=== PATIENT | male | born 1980 | race Caucasian/White ===

== ENCOUNTER 2020-01-11 09:30 | Outpatient (RCR) | payer OTHER, SELFPAY ==
--- NOTE | 2020-01-06 09:19 | P.PNPS_ITS ---
TMS Daily Progress Note Daily TMS Progress Note Week #: 8 Treatment #(05-05): 33 PHQ-9 Pre-Treatment (05-02): 17 PHQ-9 Most Recent (05-02): 16 Reviewed: TMS Tech Note Reviewed Verification: I have reviewed the TMS Meteorological Technician Note and agree with the contents. The patient remains a candidate to continue TMS treatment per protocol.
--- NOTE | 2020-01-06 21:33 | HO.TMSDAILY2 ---
TMS Daily Progress Note Daily TMS Progress Note Week #: 7 Treatment #(05-05): 32 PHQ-9 Pre-Treatment (05-02): 17 PHQ-9 Most Recent (05-02): 18 Reviewed: TMS Tech Note Reviewed Verification: I have reviewed the TMS Graphic Illustrator Note and agree with the contents. The patient remains a candidate to continue TMS treatment per protocol.
--- NOTE | 2020-01-06 21:37 | P.PNPS_ITS ---
TMS Daily Progress Note Daily TMS Progress Note Week #: 7 Treatment #(05-05): 33 PHQ-9 Pre-Treatment (05-02): 18 PHQ-9 Most Recent (05-02): 17 Reviewed: TMS Tech Note Reviewed Verification: I have reviewed the TMS Technical Communication Teacher Note and agree with the contents. The patient remains a candidate to continue TMS treatment per protocol.
--- NOTE | 2020-01-09 22:40 | P.PNPS_ITS ---
TMS Daily Progress Note Daily TMS Progress Note Week #: 8 Treatment #(05-05): 34 PHQ-9 Pre-Treatment (05-02): 17 PHQ-9 Most Recent (05-02): 16 VICK-7 Pre-Treatment (0-): 16 VICK-7 Most Recent (0-21): 11 Q-LES-Q-SF Most Recent: 41 Reviewed: TMS Tech Note Reviewed Verification: I have reviewed the TMS Slab Conditioner Supervisor Note and agree with the contents. The patient remains a candidate to continue TMS treatment per protocol.
--- NOTE | 2020-01-10 15:22 | P.PNPS_ITS ---
TMS Daily Progress Note Daily TMS Progress Note Week #: 8 Treatment #(05-05): 35 PHQ-9 Pre-Treatment (05-02): 17 PHQ-9 Most Recent (05-02): 16 Reviewed: TMS Tech Note Reviewed Verification: I have reviewed the TMS Building Equipment Inspector Note and agree with the contents. The patient remains a candidate to continue TMS treatment per protocol.
--- NOTE | 2020-01-11 17:03 | HO.TMSDCTER ---
TMS Discharge-Termination Chart Review Treatments Completed: 36/ Week 8 Initial MT%: 100% Final MT%: 120% Was Remapping Required: No Clinical Evaluation/Review PHQ-9 Pre-Treatment (05-02): 17 PHQ-9 Post-Treatment (05-02): 16 VICK-7 Pre-Treatment (0-21): 16 VICK-7 Most Recent (0-21): 11 CGI-I Initial: 4 = No Change CGI-I Post Treatment: 4 = No Change Q-LES-Q-SF Pre-Treatment: 43% Q-LES-Q-SF Post-Treatment: 41% Adverse Effects Local Pain/Discomfort: No Headache: No Facial Pain: No Seizure: No Impression Impression: No response to TMS Recommendations TMS: Discontinue Medication Changes: per Dr Pantoja Follow-up w/ Prescriber: Dr Pantoja considering ECT
== END 2020-01-11 16:13 | disposition home or self-care (01) ==
LOC: HO.PTMS 09:30
PROVIDERS: Visit Provider Psychiatry & Neurology Psychiatry
DX: F33.2 Major depressive disorder, recurrent severe without psychotic features (principal)
CPT/HCPCS: 90868

== ENCOUNTER 2020-01-13 14:12 | Outpatient (REF) | payer MEDICAID, SELFPAY ==
--- NOTE | 2020-01-13 14:25 | ECG_ITS ---
Test Reason : CLEARENCE FOR ECT Blood Pressure : / mmHG Vent. Rate : 103 BPM Atrial Rate : 103 BPM P-R Int : 146 ms QRS Dur : 092 ms QT Int : 312 ms P-R-T Axes : 050 038 065 degrees QTc Int : 408 ms Sinus tachycardia Otherwise normal ECG No previous ECGs available Referred By: Kashif Pantoja Electronically Signed By:VALENTINA BALDERRAMA MD
[2020-01-13 14:55] LABS: MANUAL DIFF FLAG NO
[2020-01-13 14:59] LABS: Basophils Percent Auto 0.2 % (0-2); Eosinophils Absolute Auto 0.1 X10*3/uL (0.0-0.4); Eosinophils Percent Auto 0.9 % (0-4); Hematocrit 47.3 % (42-52); Hemoglobin 16.2 g/dl (14.0-18.0); Imm Gran Abs Auto 0.03 X10*3/uL (0.00-0.03); Imm Gran Pct Auto 0.3 % (0.0-0.4); Lymphocytes Absolute Auto 2.1 X10*3/uL (1.2-4.9); Lymphocytes Percent Auto 24.2 % (20-40); Mean Corpuscular HGB Conc 34.2 g/dl (31.0-36.0); Mean Corpuscular Hemoglobin 29.7 pg (27.0-33.0); Mean Corpuscular Volume 86.6 fL (80-98); Mean Platelet Volume 9.5 fL (9.4-12.4); Monocytes Absolute Auto 0.7 X10*3/uL (0.1-1.2); Monocytes Percent Auto 8.3 % (2-11); Neutrophils Absolute Auto 5.7 X10*3/uL (2.0-8.3); Neutrophils Percent Auto 66.1 % (45-73); Platelet Count 251 X10*3/uL (160-400); Red Blood Count 5.46 X10*6/uL (4.60-5.80); White Blood Count 8.7 X10*3/uL (4.8-10.8)
[2020-01-13 15:29] LABS: Alanine Aminotransferase 84 U/L (0-40); Alkaline Phosphatase 83 U/L (39-117); Anion Gap 12 (12-20); Aspartate Amino Transferase 38 U/L (5-37); Bilirubin Total 0.2 mg/dL (0.0-1.0); Blood Urea Nitrogen 14 mg/dL (9-16); Calcium 9.7 mg/dL (8.4-10.2); Carbon Dioxide 30 mmol/L (22-29); Chloride 103 mmol/L (96-108); Estimated Glomerular Filt Rate > 60; Glucose Random 74 mg/dL (60-115); Potassium 4.3 mmol/l (3.3-5.1); Sodium 141 mmol/L (135-145); Total Protein 7.5 g/dL (6.5-8.0)
== END 2020-01-13 14:13 | disposition home or self-care (01) ==
LOC: HO.LAB 14:12
PROVIDERS: PCP Nurse Practitioner Family; Visit Provider Psychiatry & Neurology Psychiatry
DX: F33.2 Major depressive disorder, recurrent severe without psychotic features (principal)
CPT/HCPCS: 36415; 80053; 85025; 93005

== ENCOUNTER 2020-02-09 09:26 | Day surgery (SDC) | payer OTHER, SELFPAY ==
[2020-02-08] VITALS (7 sets, daily range): BP systolic 133–167; BP diastolic 74–112; PULSE 78–107; RESP 18–24; TEMP 36.4–36.7; O2SAT 95–100; BMI 25.1
--- NOTE | 2020-02-08 06:29 | HO.ECTPROC ---
ECT Procedure Note Diagnosis/Treatment Diagnosis: Major Depressive Disorder Current Treatment Number: 1 Treatment: Series Interval Clinical Notes: Remains depressed. First ECT ECT Settings Device: THYMATRON DGx Electrode Placement: Right Unilateral Program/Pulse Width: 0.25 Energy Percent: 50 Seizure Duration By EEG (in seconds): 79 By Motor Observation (in seconds): 74 Medications Administration General Anesthetic: Etomidate (14) Muscle Relaxant: Succinylcholine (100) Ancillary Medications Analgesics: Torodol - Pre ECT (15) Anti-emetics: Zofran - Pre ECT (4) Miscillaneous Medications: Propofol (30) Airway Management Airway Management: Bag Mask Ventilation Treatment Recommendations Electrode Placement: Right Unilateral Program/Pulse Width: 0.25 Energy Percent: 40 Notes: decrease to 40 % Pt Tolerated Procedure w/o Issue: Yes
--- NOTE | 2020-02-08 06:29 | MHC.SHP ---
Pre-Procedural Eval Section A The patient is an INPATIENT: No Changes since office visit: No Cold of Flu in the past 2 weeks, No New Medical Problems, No Changes in Medication and No Patient answered all questions The History & Physical has been completed within 30 days and I have reviewed it.: Yes Section B Chief Complaint: Severe Depression Allergies: Allergies Allergy/AdvReac Type Severity Reaction Status Date / Time dried apricots Allergy Unknown Difficulty Uncoded 01/05/20 10:19 Swallowing WELLBUTRIN AdvReac Unknown Seizure Uncoded 01/05/20 10:19 Plan Diagnosis/Plan: Unchanged Patient has been examined and remains a candidate for the planned procedure
--- NOTE | 2020-02-08 06:35 | P.CNPS_ITS ---
History of Present Illness Chief Complaint: Severe Depression Reason for Consult: ECT consultation Requesting physician: Kashif Pantoja Discussed with referring provider: Yes Sources of Information: patient interviewed and chart reviewed Additional Sources of Information: Records from [facility] and Dr Pantoja HPI Narrative: Pt referred by TW who is his OP for ECT. Long Hx TRD. X med failures. Recently failed TMS x 36. Continues to be anhedonic w a high PHQ score over 20. Denies psychosis or bipolar. Hx depressionn related anorexia. Hx cutting but no SI recenly. Hx opioid use but now on Vivtrol from [facility] clinic. Recent move to [place]. Ongoing family stress and $$ stress. See TMS consult of October 2019 for failed treatments Past Psychiatric History: Sees therapist and Dr Pantoja for med Mx. Hx X therapeutic failures. Medical Evaluation Reviewed: Yes No acute medical issues. H and P reviewed Personal & Social History: Mother is supportive. Lives with and special needs bio kids Review of Systems Review of Systems Yes all other systems are reviewed and are negative [facility] Medical History Anxiety Bipolar affective disorder Depression GERD (gastroesophageal reflux disease) Peptic ulcer Seizures Surgical History H/O vasectomy Diagnostics Labs Labs: See H and P from PCP. Scanned ? EKG EKG: reviewed EKG Comment: See H and P from PCP Mental Status Exam Mental Status Exam Patient Appearance: Appropriate and Unkempt Patient Orientation: Person, Place, Time and Situation Level of Consciousness: Awake Patient Behavior: Appropriate Mood Description: Depressed Affect Description: Depressed Patient Cognition Impaired: No Ability to Follow Directions: Excellent Memory Description: Intact Hallucinations: None Delusions: Not Present Thought Process: Intact Depressive Symptoms: Insomnia, Increased Irritability, Loss of Int. in Activity and Unhappiness Judgement: Good Medications Allergies Allergies Allergy/AdvReac Type Severity Reaction Status Date / Time dried apricots Allergy Unknown Difficulty Uncoded 01/05/20 10:19 Swallowing WELLBUTRIN AdvReac Unknown Seizure Uncoded 01/05/20 10:19 Assessment & Plan Assessment & Plan (1) Major depressive disorder, recurrent severe without psychotic features: Status: Acute Code(s): F33.2 - Major depressive disorder, recurrent severe without psychotic features Recommendations: Start ECT today. Extensive Education done with too 2 weeks ago Greater than 50% of the session was spent on counseling and/or coordination of care
--- NOTE | 2020-02-08 07:36 | HO.ANESPROP2 ---
HPI - Anesthesia Eval Consult details Narrative: 39 M with MDD pf ECT PMFSH Past Medical History Medical History Anxiety Bipolar affective disorder Depression GERD (gastroesophageal reflux disease) Peptic ulcer Seizures Surgical History Surgical History H/O vasectomy Social History Social History Household Members: Spouse and Children Housing: Apartment Alcohol intake: never Smoking Status: Former smoker Tobacco Type: Pipe Smoked in Last 30 Days: Yes Use of substances other than those prescribed or required for medical reasons: Yes Substance Use Type: Former Substance User, Heroin, Marijuana, Opiates, Other, Painkillers and Prescription Drugs Substance Use Type Other:: LSD in , mushrooms in , ecstacy in , Substance Use Frequency: Daily Last Used Substance Other:: marijuana used 02/07/2020 Currently Displaying Signs/Symptoms of Drug Intoxication Withdrawal: No Have you been hit, kicked, punched, or otherwise hurt by someone within the past year? If so, by whom?: No Do you feel safe in your current relationship?: No Is there a partner from a previous relationship who is making you feel unsafe now?: No Are you made to feel afraid or neglected: No Do you have thoughts of harming others: None Meds Allergies Allergy/AdvReac Type Severity Reaction Status Date / Time dried apricots Allergy Unknown Difficulty Uncoded 01/05/20 10:19 Swallowing WELLBUTRIN AdvReac Unknown Seizure Uncoded 01/05/20 10:19 Home Medications Medication Instructions Recorded Confirmed Type aripiprazole 10 mg PO DAILY 02/08/20 02/08/20 History desipramine 50 mg PO BEDTIME 02/08/20 02/08/20 History escitalopram oxalate 20 mg PO DAILY 02/08/20 02/08/20 History folic acid 1 mg PO DAILY 02/08/20 02/08/20 History omeprazole 20 mg PO DAILY 02/08/20 02/08/20 History thiamine HCl (vitamin B1) [Vitamin 100 mg PO DAILY 02/08/20 02/08/20 History B-1] Exam Exam Date and Time: February 08, 2020 0736 Height,Weight and Vital Signs: Height 5 ft 9 in Weight 77.111 kg Last Vital Signs Temp 98.1 F 02/08/20 06:30 Pulse 107 H 02/08/20 06:30 Resp 18 02/08/20 06:30 BP 147/93 H 02/08/20 06:30 Pulse Ox 97 02/08/20 06:30 Airway Mallampati Class: II TM Dist: >3cm Neck ROM: Full Loose/Missing/Broken Teeth: No Heart: rrr Lungs: nl Other: ao Assessment and Plan Assessment Anesthesia Assessment: Anesthesia Plan Discussed and Chart Reviewed Final Anesthetic Review NPO: Yes ASA Class: II Final Preanesthetic Review: No Changes in Pt Med Stat, Meds/Allgs Chart Reviewed, Consent Obtained/Reviewed and Anes Risks/Benef Reviewed Patient Risk: Low Procedure Risk: Low Anesthetic Plan Anesthetic Plan: GA Disposition: Standard PACU
== END 2020-02-09 23:59 | disposition home or self-care (01) ==
PROVIDERS: PCP Nurse Practitioner Family; Visit Provider Psychiatry & Neurology Psychiatry
PROC: (CPT 90870; principal; 2020-02-08 09:30)
DX: F32.2 Major depressive disorder, single episode, severe without psychotic features (principal); Z87.898 Personal history of other specified conditions; Z87.891 Personal history of nicotine dependence; Z88.8 Allergy status to other drugs, medicaments and biological substances; Z79.899 Other long term (current) drug therapy
CPT/HCPCS: 90870; 99284

== ENCOUNTER 2020-02-10 06:07 | Day surgery (SDC) | payer OTHER, SELFPAY ==
[2020-02-10] VITALS (7 sets, daily range): BP systolic 136–160; BP diastolic 85–111; PULSE 75–102; RESP 18–20; TEMP 36.1–37.2; O2SAT 97–99; BMI 25.1
--- NOTE | 2020-02-10 07:06 | HO.ECTPROC ---
ECT Procedure Note Diagnosis/Treatment Diagnosis: Major Depressive Disorder Previous ECT Date: 02/08/20 Current Treatment Number: 2 Treatment: Series (2) Interval Clinical Notes: tolerated ECT well ECT Settings Device: THYMATRON DGx Electrode Placement: Right Unilateral Program/Pulse Width: 0.25 Energy Percent: 40 Seizure Duration By EEG (in seconds): 81 By Motor Observation (in seconds): 60 Medications Administration General Anesthetic: Etomidate (14) Muscle Relaxant: Succinylcholine (100) Ancillary Medications Analgesics: Torodol - Pre ECT (15) Anti-emetics: Zofran - Pre ECT (4) Miscillaneous Medications: Propofol (30) Airway Management Airway Management: Bag Mask Ventilation Treatment Recommendations Electrode Placement: Right Unilateral Program/Pulse Width: 0.25 Energy Percent: 30 Notes: Decrease to 30%. Wait for succ to take effect to avoid motor Sz Pt Tolerated Procedure w/o Issue: Yes
--- NOTE | 2020-02-10 08:10 | P.CONAN_ITS ---
[facility] Past Medical History Medical History Anxiety Bipolar affective disorder Depression GERD (gastroesophageal reflux disease) Peptic ulcer Seizures Surgical History Surgical History H/O vasectomy Social History Social History Household Members: Spouse and Children Housing: Apartment Alcohol intake: never Smoking Status: Former smoker Tobacco Type: Pipe Substance Use Type: Former Substance User, Heroin, Marijuana, Opiates, Other, Painkillers and Prescription Drugs Advance Directives: No Meds Allergies Allergy/AdvReac Type Severity Reaction Status Date / Time dried apricots Allergy Unknown Difficulty Uncoded 01/05/20 10:19 Swallowing WELLBUTRIN AdvReac Unknown Seizure Uncoded 01/05/20 10:19 Home Medications Medication Instructions Recorded Confirmed Type aripiprazole 10 mg PO DAILY 02/08/20 02/08/20 History desipramine 50 mg PO BEDTIME 02/08/20 02/08/20 History escitalopram oxalate 20 mg PO DAILY 02/08/20 02/08/20 History folic acid 1 mg PO DAILY 02/08/20 02/08/20 History omeprazole 20 mg PO DAILY 02/08/20 02/08/20 History thiamine HCl (vitamin B1) [Vitamin 100 mg PO DAILY 02/08/20 02/08/20 History B-1] Exam Exam Date and Time: February 10, 2020 0810 Height,Weight and Vital Signs: Height 5 ft 9 in Weight 77.111 kg Last Vital Signs Temp 97.0 F 02/10/20 06:30 Pulse 102 H 02/10/20 06:30 Resp 18 02/10/20 06:30 BP 142/101 H 02/10/20 06:30 Pulse Ox 97 02/10/20 06:30 Airway Mallampati Class: II TM Dist: >3cm Neck ROM: Full
--- NOTE | 2020-02-10 10:12 | PC.NURSE ---
Late entry. Pt admitted to PACU for ECT. IV inserted, LR infusing, anesthesia to enter order.
== END 2020-02-10 10:00 | disposition home or self-care (01) ==
PROVIDERS: PCP Nurse Practitioner Family; Visit Provider Psychiatry & Neurology Psychiatry
PROC: (CPT 90870; principal; 2020-02-10 08:30)
DX: F31.30 Bipolar disorder, current episode depressed, mild or moderate severity, unspecified (principal)
CPT/HCPCS: 90870; J0330; J1885; J2405

== ENCOUNTER 2020-02-13 06:09 | Day surgery (SDC) | payer OTHER, SELFPAY ==
[2020-02-13] VITALS (7 sets, daily range): BP systolic 145–172; BP diastolic 99–111; PULSE 78–100; RESP 18–20; TEMP 36.3–36.8; O2SAT 93–99
--- NOTE | 2020-02-13 07:04 | HO.ECTPROC ---
ECT Procedure Note Diagnosis/Treatment Diagnosis: Major Depressive Disorder Previous ECT Date: 02/10/20 Current Treatment Number: 3 Treatment: Series Interval Clinical Notes: Mood better ECT Settings Device: THYMATRON DGx Electrode Placement: Right Unilateral Program/Pulse Width: 0.25 Energy Percent: 30 Medications Administration General Anesthetic: Etomidate (14) Muscle Relaxant: Succinylcholine (100) Ancillary Medications Analgesics: Torodol - Pre ECT (15) Anti-emetics: Zofran - Pre ECT (4) Miscillaneous Medications: Propofol (50) Airway Management Airway Management: Bag Mask Ventilation Treatment Recommendations Electrode Placement: Right Unilateral Program/Pulse Width: 0.25 Energy Percent: 30 Notes: Increase Succ to 140 mg bc of motor Sz Pt Tolerated Procedure w/o Issue: Yes
--- NOTE | 2020-02-13 08:02 | HO.ANESPROP2 ---
[facility] Past Medical History Medical History Anxiety Bipolar affective disorder Depression GERD (gastroesophageal reflux disease) Peptic ulcer Seizures Surgical History Surgical History H/O vasectomy Social History Social History Household Members: Spouse and Children Housing: Apartment Alcohol intake: never Smoking Status: Former smoker Tobacco Type: Pipe Substance Use Type: Former Substance User, Heroin, Marijuana, Opiates, Other, Painkillers and Prescription Drugs Advance Directives: No Meds Allergies Allergy/AdvReac Type Severity Reaction Status Date / Time dried apricots Allergy Unknown Difficulty Uncoded 01/05/20 10:19 Swallowing WELLBUTRIN AdvReac Unknown Seizure Uncoded 01/05/20 10:19 Home Medications Medication Instructions Recorded Confirmed Type aripiprazole 10 mg PO DAILY 02/08/20 02/08/20 History desipramine 50 mg PO BEDTIME 02/08/20 02/08/20 History escitalopram oxalate 20 mg PO DAILY 02/08/20 02/08/20 History folic acid 1 mg PO DAILY 02/08/20 02/08/20 History omeprazole 20 mg PO DAILY 02/08/20 02/08/20 History thiamine HCl (vitamin B1) [Vitamin 100 mg PO DAILY 02/08/20 02/08/20 History B-1] Exam Exam Date and Time: February 13, 2020 0802 Height,Weight and Vital Signs: Last Vital Signs Temp 98.2 F 02/13/20 06:37 Pulse 93 02/13/20 06:37 Resp 18 02/13/20 06:37 BP 145/108 H 02/13/20 06:37 Pulse Ox 96 02/13/20 06:37 Airway Mallampati Class: II TM Dist: >3cm Neck ROM: Full Assessment and Plan Assessment Anesthesia Assessment: Anesthesia Plan Discussed and Chart Reviewed Final Anesthetic Review NPO: Yes Final Preanesthetic Review: No Changes in Pt Med Stat, Meds/Allgs Chart Reviewed, Consent Obtained/Reviewed and Anes Risks/Benef Reviewed Patient Risk: Low Procedure Risk: Low Assessment/Block/Sedation in SS: Assess/Block/Sedation-SS Anesthetic Plan Anesthetic Plan: GA Disposition: Standard PACU
--- NOTE | 2020-02-13 09:10 | HO.POSTANES ---
Post Anesthesia Evaluation Post Anesthesia Evaluation Vital Signs: Vital Signs Temp Pulse Resp BP Pulse Ox 02/13/20 08:47 97.9 F 88 20 160/100 H 97 02/13/20 08:32 90 20 150/111 H 98 02/13/20 08:18 78 20 172/109 H 99 02/13/20 08:13 85 19 157/107 H 94 02/13/20 08:08 100 18 167/99 H 95 02/13/20 08:03 97.4 F 93 18 168/103 H 93 02/13/20 06:37 98.2 F 93 18 145/108 H 96 Anesthesia: General (mask) Mental Status: Awake Pain Control: Satisfactory Nausea/Vomiting: None Hydration: Adequate Anesthesia-Related Issues: No Anes. Related Issues
== END 2020-02-13 09:30 | disposition home or self-care (01) ==
PROVIDERS: PCP Nurse Practitioner Family; Visit Provider Psychiatry & Neurology Psychiatry
PROC: (CPT 90870; principal; 2020-02-13 08:00)
DX: F33.2 Major depressive disorder, recurrent severe without psychotic features (principal); R56.9 Unspecified convulsions; Z79.899 Other long term (current) drug therapy; Z88.8 Allergy status to other drugs, medicaments and biological substances
CPT/HCPCS: 90870

== ENCOUNTER 2020-02-15 06:17 | Day surgery (SDC) | payer OTHER, MEDICAID, SELFPAY ==
[2020-02-15 06:40] VITALS: BP 152/100; PULSE 96; RESP 16; TEMP 36.4; O2SAT 96; BMI 25.8
--- NOTE | 2020-02-15 07:26 | HO.ANESPROP2 ---
HPI - Anesthesia Eval Consult details Narrative: 39 M here for ect [facility] Past Medical History Medical History Anxiety Bipolar affective disorder Depression GERD (gastroesophageal reflux disease) Peptic ulcer Seizures Surgical History Surgical History H/O vasectomy Social History Social History Household Members: Spouse and Children Housing: Apartment Alcohol intake: never Smoking Status: Former smoker Tobacco Type: Pipe Substance Use Type: Former Substance User, Heroin, Marijuana, Opiates, Other, Painkillers and Prescription Drugs Advance Directives: No Meds Allergies Allergy/AdvReac Type Severity Reaction Status Date / Time dried apricots Allergy Unknown Difficulty Uncoded 01/05/20 10:19 Swallowing WELLBUTRIN AdvReac Unknown Seizure Uncoded 01/05/20 10:19 Home Medications Medication Instructions Recorded Confirmed Type aripiprazole 10 mg PO DAILY 02/08/20 02/08/20 History desipramine 50 mg PO BEDTIME 02/08/20 02/08/20 History escitalopram oxalate 20 mg PO DAILY 02/08/20 02/08/20 History folic acid 1 mg PO DAILY 02/08/20 02/08/20 History omeprazole 20 mg PO DAILY 02/08/20 02/08/20 History thiamine HCl (vitamin B1) [Vitamin 100 mg PO DAILY 02/08/20 02/08/20 History B-1] Exam Exam Date and Time: February 15, 2020 0726 Height,Weight and Vital Signs: Height 5 ft 10 in Weight 81.647 kg Last Vital Signs Temp 97.6 F 02/15/20 06:40 Pulse 96 02/15/20 06:40 Resp 16 02/15/20 06:40 BP 152/100 H 02/15/20 06:40 Pulse Ox 96 02/15/20 06:40 Airway Mallampati Class: I TM Dist: >3cm Neck ROM: Full Loose/Missing/Broken Teeth: No Assessment and Plan Assessment Anesthesia Assessment: Anesthesia Plan Discussed and Chart Reviewed Final Anesthetic Review NPO: Yes ASA Class: II Final Preanesthetic Review: No Changes in Pt Med Stat, Meds/Allgs Chart Reviewed, Consent Obtained/Reviewed and Anes Risks/Benef Reviewed Patient Risk: Low Procedure Risk: Low Anesthetic Plan Anesthetic Plan: GA Disposition: Standard PACU
--- NOTE | 2020-02-15 08:13 | MHC.SHP ---
Pre-Procedural Eval Section A The patient is an INPATIENT: No Changes since office visit: Yes Patient answered all questions; No Cold of Flu in the past 2 weeks, No New Medical Problems and No Changes in Medication The History & Physical has been completed within 30 days and I have reviewed it.: Yes Section B Chief Complaint: Severe Depression Allergies: Allergies Allergy/AdvReac Type Severity Reaction Status Date / Time dried apricots Allergy Unknown Difficulty Uncoded 01/05/20 10:19 Swallowing WELLBUTRIN AdvReac Unknown Seizure Uncoded 01/05/20 10:19 Plan Patient has been examined and remains a candidate for the planned procedure
--- NOTE | 2020-02-15 08:26 | HO.ECTPROC ---
ECT Procedure Note Diagnosis/Treatment Diagnosis: Major Depressive Disorder Previous ECT Date: 02/13/20 Current Treatment Number: 4 Treatment: Series Interval Clinical Notes: pt feels better no c/o side effects ECT Settings Device: THYMATRON DGx Electrode Placement: Right Unilateral Program/Pulse Width: 0.25 Energy Percent: 30 Seizure Duration By EEG (in seconds): 62 Medications Administration General Anesthetic: Etomidate (14) Muscle Relaxant: Succinylcholine (140) Ancillary Medications Analgesics: Torodol - Pre ECT (15) Anti-emetics: Zofran - Pre ECT (4) Miscillaneous Medications: Propofol (50) Airway Management Airway Management: Bag Mask Ventilation Treatment Recommendations No Changes Recommended: No change Notes: continue per dr richardson Pt Tolerated Procedure w/o Issue: Yes
[2020-02-15 08:30] VITALS: BP 160/100; PULSE 120; RESP 14; TEMP 36.6; O2SAT 99
[2020-02-15 08:35] VITALS: BP 130/75; PULSE 103; RESP 22; O2SAT 97
[2020-02-15 08:40] VITALS: BP 125/84; PULSE 101; RESP 21; O2SAT 98
[2020-02-15 08:45] VITALS: BP 126/88; PULSE 103; RESP 19; O2SAT 98
[2020-02-15 09:00] VITALS: BP 141/104; PULSE 112; RESP 18; O2SAT 99
--- NOTE | 2020-02-15 09:05 | HO.POSTANES ---
Post Anesthesia Evaluation Post Anesthesia Evaluation Vital Signs: Vital Signs Temp Pulse Resp BP Pulse Ox 02/15/20 09:00 112 H 18 141/104 H 99 02/15/20 08:45 103 H 19 126/88 98 02/15/20 08:40 101 H 21 H 125/84 98 02/15/20 08:35 103 H 22 H 130/75 97 02/15/20 08:30 97.9 F 120 H 14 160/100 H 99 02/15/20 06:40 97.6 F 96 16 152/100 H 96 Anesthesia: General Mental Status: Awake Pain Control: Satisfactory Nausea/Vomiting: None Hydration: Adequate Anesthesia-Related Issues: No Anes. Related Issues
== END 2020-02-15 09:33 | disposition home or self-care (01) ==
PROVIDERS: PCP Nurse Practitioner Family; Visit Provider Psychiatry & Neurology Psychiatry
PROC: (CPT 90870; principal; 2020-02-15 08:00)
DX: F33.2 Major depressive disorder, recurrent severe without psychotic features (principal); Z87.891 Personal history of nicotine dependence
CPT/HCPCS: 90870

== ENCOUNTER 2020-02-17 06:14 | Day surgery (SDC) | payer OTHER, SELFPAY ==
[2020-02-17] VITALS (7 sets, daily range): BP systolic 123–147; BP diastolic 80–99; PULSE 94–111; RESP 16–18; TEMP 36.8; O2SAT 95–98; BMI 26.6
--- NOTE | 2020-02-17 06:09 | HO.ECTPROC ---
ECT Procedure Note Diagnosis/Treatment Diagnosis: Major Depressive Disorder Previous ECT Date: 02/17/20 Current Treatment Number: 5 Interval Clinical Notes: Steady improvement in mood. Agrees to M-ECT ECT Settings Device: THYMATRON DGx Electrode Placement: Right Unilateral Program/Pulse Width: 0.25 Energy Percent: 30 Seizure Duration By EEG (in seconds): 72 By Motor Observation (in seconds): 58 Medications Administration General Anesthetic: Etomidate (14) Muscle Relaxant: Succinylcholine (140) and Rocuronium (140) Ancillary Medications Analgesics: Torodol - Pre ECT (15) Anti-emetics: Zofran - Pre ECT (4) Miscillaneous Medications: Propofol (50) Airway Management Airway Management: Bag Mask Ventilation Treatment Recommendations Electrode Placement: Right Unilateral Program/Pulse Width: 0.25 Energy Percent: 25 Notes: Schedule next ECT on Feb 19, , and Mar 16. Transition to M-ECt after #6 Pt Tolerated Procedure w/o Issue: Yes
== END 2020-02-17 08:54 | disposition home or self-care (01) ==
PROVIDERS: PCP Nurse Practitioner Family; Visit Provider Psychiatry & Neurology Psychiatry
PROC: (CPT 90870; principal; 2020-02-17 07:30)
DX: F32.2 Major depressive disorder, single episode, severe without psychotic features (principal)
CPT/HCPCS: 90870

== ENCOUNTER 2020-02-20 06:09 | Day surgery (SDC) | payer OTHER, SELFPAY ==
--- NOTE | 2020-02-20 06:09 | MHC.SHP ---
Pre-Procedural Eval Section A The patient is an INPATIENT: No Changes since office visit: No Cold of Flu in the past 2 weeks, No New Medical Problems, No Changes in Medication and No Patient answered all questions The History & Physical has been completed within 30 days and I have reviewed it.: Yes Section B Chief Complaint: Severe Depression Details of Present Illness: Improving mood Allergies: Allergies Allergy/AdvReac Type Severity Reaction Status Date / Time dried apricots Allergy Unknown Difficulty Uncoded 02/17/20 06:32 Swallowing WELLBUTRIN AdvReac Unknown Seizure Uncoded 02/17/20 06:32 Plan Diagnosis/Plan: Unchanged Patient has been examined and remains a candidate for the planned procedure
--- NOTE | 2020-02-20 06:10 | HO.ECTPROC ---
ECT Procedure Note Diagnosis/Treatment Diagnosis: Major Depressive Disorder Current Treatment Number: 6 Treatment: Series Interval Clinical Notes: Improving. Slept all weekend. Had post-agitation laST ect ECT Settings Device: THYMATRON DGx Electrode Placement: Right Unilateral Program/Pulse Width: 0.25 Energy Percent: 25 (Reduce to 20% at next ECT (see notes below)) Seizure Duration By EEG (in seconds): 72 By Motor Observation (in seconds): 55 Medications Administration General Anesthetic: Etomidate (14) Muscle Relaxant: Succinylcholine (140) Ancillary Medications Analgesics: Torodol - Pre ECT (15) Anti-emetics: Zofran - Pre ECT (4) Miscillaneous Medications: Propofol (50) Airway Management Airway Management: Bag Mask Ventilation Treatment Recommendations Electrode Placement: Right Unilateral Program/Pulse Width: 0.25 Energy Percent: 20 Notes: reduce to 20% Pt Tolerated Procedure w/o Issue: Yes
[2020-02-20 06:34] VITALS: BP 158/108; PULSE 111; RESP 18; TEMP 36.1; O2SAT 96; BMI 26.6
--- NOTE | 2020-02-20 08:02 | P.CONAN_ITS ---
[facility], [facility] Past Medical History Medical History Anxiety Bipolar affective disorder Depression GERD (gastroesophageal reflux disease) Peptic ulcer Seizures Surgical History Surgical History H/O vasectomy Social History Social History Household Members: Spouse and Children Housing: Apartment Alcohol intake: never Smoking Status: Former smoker Tobacco Type: Pipe Substance Use Type: Former Substance User, Heroin, Marijuana, Opiates, Other, Painkillers and Prescription Drugs Advance Directives: No Advance Directives Information Provided: No Meds Allergies Allergy/AdvReac Type Severity Reaction Status Date / Time dried apricots Allergy Unknown Difficulty Uncoded 02/20/20 06:40 Swallowing WELLBUTRIN AdvReac Unknown Seizure Uncoded 02/20/20 06:40 Home Medications Medication Instructions Recorded Confirmed Type aripiprazole 10 mg PO DAILY 02/08/20 02/17/20 History desipramine 50 mg PO BEDTIME 02/08/20 02/17/20 History escitalopram oxalate 20 mg PO DAILY 02/08/20 02/17/20 History folic acid 1 mg PO DAILY 02/08/20 02/17/20 History omeprazole 20 mg PO DAILY 02/08/20 02/17/20 History thiamine HCl (vitamin B1) [Vitamin 100 mg PO DAILY 02/08/20 02/17/20 History B-1] Exam Exam Date and Time: February 20, 2020 0802 Height,Weight and Vital Signs: Height 5 ft 9 in Weight 81.647 kg Last Vital Signs Temp 97.0 F 02/20/20 06:34 Pulse 111 H 02/20/20 06:34 Resp 18 02/20/20 06:34 BP 158/108 H 02/20/20 06:34 Pulse Ox 96 02/20/20 06:34 Airway Mallampati Class: III TM Dist: >3cm Neck ROM: Full
[2020-02-20 08:05] VITALS: BP 146/95; PULSE 102; RESP 14; TEMP 36.1; O2SAT 100
--- NOTE | 2020-02-20 08:07 | HO.POSTANES ---
Post Anesthesia Evaluation Post Anesthesia Evaluation Vital Signs: Vital Signs Temp Pulse Resp BP Pulse Ox 02/20/20 08:00 97.0 F 02/20/20 06:34 97.0 F 111 H 18 158/108 H 96 Anesthesia: General Mental Status: Awake Pain Control: Satisfactory Nausea/Vomiting: None Hydration: Adequate Anesthesia-Related Issues: No Anes. Related Issues
[2020-02-20 08:10] VITALS: BP 163/104; PULSE 110; RESP 18; O2SAT 96
[2020-02-20 08:15] VITALS: BP 157/95; PULSE 114; RESP 18; O2SAT 96
[2020-02-20 08:20] VITALS: BP 123/71; PULSE 111; RESP 18; O2SAT 95
[2020-02-20 08:30] VITALS: BP 154/100; PULSE 103; RESP 16; O2SAT 97
== END 2020-02-20 08:59 | disposition home or self-care (01) ==
PROVIDERS: PCP Nurse Practitioner Family; Visit Provider Psychiatry & Neurology Psychiatry
PROC: (CPT 90870; principal; 2020-02-20 07:30)
DX: F32.2 Major depressive disorder, single episode, severe without psychotic features (principal); Z88.8 Allergy status to other drugs, medicaments and biological substances; F17.210 Nicotine dependence, cigarettes, uncomplicated; Z87.898 Personal history of other specified conditions
CPT/HCPCS: 90870

== ENCOUNTER 2020-03-09 06:13 | Day surgery (SDC) | payer OTHER, SELFPAY ==
[2020-03-09] VITALS (7 sets, daily range): BP systolic 129–160; BP diastolic 78–98; PULSE 89–106; RESP 16–20; TEMP 36.2–36.5; O2SAT 95–100; BMI 25.8
--- NOTE | 2020-03-09 06:48 | HO.ECTPROC ---
ECT Procedure Note Diagnosis/Treatment Diagnosis: Major Depressive Disorder Previous ECT Date: 02/20/20 Current Treatment Number: 1 (1/#7) Treatment: Maintenance Interval Clinical Notes: Depressed. Discussed M-ECT as tolerated ECT Settings Device: THYMATRON DGx Electrode Placement: Right Unilateral Program/Pulse Width: 0.25 Energy Percent: 20 Seizure Duration By EEG (in seconds): 84 By Motor Observation (in seconds): 48 Medications Administration General Anesthetic: Etomidate (14) Muscle Relaxant: Succinylcholine (120) Ancillary Medications Analgesics: Torodol - Pre ECT (15) and Torodol - Post ECT Anti-emetics: Zofran - Pre ECT (4) Airway Management Airway Management: Bag Mask Ventilation Treatment Recommendations Electrode Placement: Right Unilateral Program/Pulse Width: 0.25 Energy Percent: 15 Notes: Reduce to 15%. Refer to PCP for tick bite Pt Tolerated Procedure w/o Issue: Yes
--- NOTE | 2020-03-09 06:48 | MHC.SHP ---
Pre-Procedural Eval Section A The patient is an INPATIENT: No Changes since office visit: Yes New Medical Problems; No Cold of Flu in the past 2 weeks, No Changes in Medication and No Patient answered all questions The History & Physical has been completed within 30 days and I have reviewed it.: Yes Section B Chief Complaint: depression Details of Present Illness: Tick bite 1 week ago Relevant Family History (Specify if Yes): No Relevant Social History: Tobacco Use Present Medications: see Short Stay Collaborative assessment Medical History: No relevant PMH Allergies: Allergies Allergy/AdvReac Type Severity Reaction Status Date / Time dried apricots Allergy Unknown Difficulty Uncoded 02/20/20 06:40 Swallowing WELLBUTRIN AdvReac Unknown Seizure Uncoded 02/20/20 06:40 Review of Systems Sugical H&P ROS: Negative: Constitution, Cardiovascular, Respiratory, Neurological, Hem-Onc, Allergic/Immunologic, Gastrointestinal, Genitourinary, Musculoskeletal, Endocrine and Eyes/Ears/Nose/Throat and Yes, Specify: Psychiatric and Integumentary (Left ankle tick bite) Exam Surgical H&P Exam: Normal: HEENT, Normal: Heart and Normal: Lungs, Not Evaluated: Extremities, Not Evaluated: Abdomen and Not Evaluated: Neurological and Significant Findings: Skin (Left ankle tick bite) Exam Comment: Pt is healthy with no interval medical events. Referred to PCP for tick bite. Ct ECT Plan Diagnosis/Plan: Unchanged Patient has been examined and remains a candidate for the planned procedure
[2020-03-09] MEDS: Lactated Ringers 1,000 ML 50 ML IVCONT (07:00)
--- NOTE | 2020-03-09 07:21 | HO.ANESPROP2 ---
[facility] Past Medical History Medical History Anxiety Bipolar affective disorder Depression GERD (gastroesophageal reflux disease) Peptic ulcer Seizures Surgical History Surgical History H/O vasectomy Social History Social History Household Members: Spouse and Children Housing: Apartment Alcohol intake: never Smoking Status: Current every day smoker Tobacco Type: Pipe Patient Given Instructions on How to Stop Smoking: Yes Date Education Initiated: 03/09/20 Second Hand Smoke Exposure: No Use of substances other than those prescribed or required for medical reasons: Yes Substance Use Type: Former Substance User, Heroin, Marijuana, Opiates, Other, Painkillers and Prescription Drugs Substance Use Frequency: Daily Advance Directives: No Advance Directives Information Provided: No Meds Allergies Allergy/AdvReac Type Severity Reaction Status Date / Time dried apricots Allergy Unknown Difficulty Uncoded 02/20/20 06:40 Swallowing WELLBUTRIN AdvReac Unknown Seizure Uncoded 02/20/20 06:40 Home Medications Medication Instructions Recorded Confirmed Type aripiprazole 10 mg PO DAILY 02/08/20 03/09/20 History desipramine 50 mg PO BEDTIME 02/08/20 03/09/20 History escitalopram oxalate 20 mg PO DAILY 02/08/20 03/09/20 History folic acid 1 mg PO DAILY 02/08/20 03/09/20 History omeprazole 20 mg PO DAILY 02/08/20 03/09/20 History thiamine HCl (vitamin B1) [Vitamin 100 mg PO DAILY 02/08/20 03/09/20 History B-1] Exam Exam Date and Time: March 09, 2020720 Height,Weight and Vital Signs: Height 5 ft 10 in Weight 81.647 kg Last Vital Signs Temp 97.1 F 03/09/20 06:43 Pulse 96 03/09/20 06:43 Resp 16 03/09/20 06:43 BP 150/95 H 03/09/20 06:43 Pulse Ox 98 03/09/20 06:43 Airway Mallampati Class: II TM Dist: >3cm Neck ROM: Full Heart: RR Lungs: CTA
--- NOTE | 2020-03-09 07:24 | HO.ANESPROP2 ---
[facility] Past Medical History Medical History Anxiety Bipolar affective disorder Depression GERD (gastroesophageal reflux disease) Peptic ulcer Seizures Surgical History Surgical History H/O vasectomy Social History Social History Household Members: Spouse and Children Housing: Apartment Alcohol intake: never Smoking Status: Current every day smoker Tobacco Type: Pipe Patient Given Instructions on How to Stop Smoking: Yes Date Education Initiated: 03/09/20 Second Hand Smoke Exposure: No Use of substances other than those prescribed or required for medical reasons: Yes Substance Use Type: Former Substance User, Heroin, Marijuana, Opiates, Other, Painkillers and Prescription Drugs Substance Use Frequency: Daily Advance Directives: No Advance Directives Information Provided: No Meds Allergies Allergy/AdvReac Type Severity Reaction Status Date / Time dried apricots Allergy Unknown Difficulty Uncoded 02/20/20 06:40 Swallowing WELLBUTRIN AdvReac Unknown Seizure Uncoded 02/20/20 06:40 Home Medications Medication Instructions Recorded Confirmed Type aripiprazole 10 mg PO DAILY 02/08/20 03/09/20 History desipramine 50 mg PO BEDTIME 02/08/20 03/09/20 History escitalopram oxalate 20 mg PO DAILY 02/08/20 03/09/20 History folic acid 1 mg PO DAILY 02/08/20 03/09/20 History omeprazole 20 mg PO DAILY 02/08/20 03/09/20 History thiamine HCl (vitamin B1) [Vitamin 100 mg PO DAILY 02/08/20 03/09/20 History B-1] Exam Exam Date and Time: March 09, [id number] Height,Weight and Vital Signs: Height 5 ft 10 in Weight 81.647 kg Last Vital Signs Temp 97.1 F 03/09/20 06:43 Pulse 96 03/09/20 06:43 Resp 16 03/09/20 06:43 BP 150/95 H 03/09/20 06:43 Pulse Ox 98 03/09/20 06:43 Assessment and Plan Assessment Anesthesia Assessment: Anesthesia Plan Discussed Final Anesthetic Review NPO: Yes ASA Class: III Final Preanesthetic Review: No Changes in Pt Med Stat, Meds/Allgs Chart Reviewed, Consent Obtained/Reviewed and Anes Risks/Benef Reviewed Patient Risk: Low Procedure Risk: Low Anesthetic Plan Anesthetic Plan: GA Disposition: Standard PACU
== END 2020-03-09 08:35 | disposition home or self-care (01) ==
PROVIDERS: Visit Provider Psychiatry & Neurology Psychiatry
PROC: (CPT 90870; principal; 2020-03-09 08:00)
DX: F33.2 Major depressive disorder, recurrent severe without psychotic features (principal)
CPT/HCPCS: 90870

== ENCOUNTER 2020-03-12 07:06 | Day surgery (SDC) | payer OTHER, SELFPAY ==
[2020-03-12] VITALS (7 sets, daily range): BP systolic 142–190; BP diastolic 89–100; PULSE 101–112; RESP 16–18; TEMP 36.1–36.4; O2SAT 95–98; BMI 26.6
--- NOTE | 2020-03-12 06:37 | HO.ECTPROC ---
ECT Procedure Note Diagnosis/Treatment Diagnosis: Major Depressive Disorder Previous ECT Date: 03/09/20 Treatment: Maintenance (#2) and Series (#8) Interval Clinical Notes: Tolerated well. No complaints of post-ECT days. Will see PCP re tick bite ECT Settings Device: THYMATRON DGx Electrode Placement: Right Unilateral Program/Pulse Width: 0.25 Energy Percent: 15 Seizure Duration By EEG (in seconds): 56 By Motor Observation (in seconds): 47 Medications Administration General Anesthetic: Etomidate (14) Muscle Relaxant: Succinylcholine (100) Ancillary Medications Analgesics: Torodol - Pre ECT (15) and Torodol - Post ECT Anti-emetics: Zofran - Pre ECT (4) Miscillaneous Medications: Propofol (30) Airway Management Airway Management: Bag Mask Ventilation Treatment Recommendations No Changes Recommended: No change Pt Tolerated Procedure w/o Issue: Yes
--- NOTE | 2020-03-12 06:37 | MHC.SHP ---
Pre-Procedural Eval Section A The patient is an INPATIENT: No Changes since office visit: No Cold of Flu in the past 2 weeks, No New Medical Problems, No Changes in Medication and No Patient answered all questions The History & Physical has been completed within 30 days and I have reviewed it.: Yes Section B Chief Complaint: depression Allergies: Allergies Allergy/AdvReac Type Severity Reaction Status Date / Time dried apricots Allergy Unknown Difficulty Uncoded 02/20/20 06:40 Swallowing WELLBUTRIN AdvReac Unknown Seizure Uncoded 02/20/20 06:40 Plan Patient has been examined and remains a candidate for the planned procedure
--- NOTE | 2020-03-12 06:59 | HO.ANESPROP2 ---
[facility] Past Medical History Medical History Anxiety Bipolar affective disorder Depression GERD (gastroesophageal reflux disease) Peptic ulcer Seizures Surgical History Surgical History H/O vasectomy Social History Social History Household Members: Spouse and Children Housing: Apartment Alcohol intake: never Smoking Status: Current every day smoker Tobacco Type: Cigarette and Pipe Patient Given Instructions on How to Stop Smoking: Yes Date Education Initiated: 03/09/20 Second Hand Smoke Exposure: No Use of substances other than those prescribed or required for medical reasons: Yes Substance Use Type: Former Substance User, Heroin, Marijuana, Opiates, Other, Painkillers and Prescription Drugs Substance Use Frequency: Daily Advance Directives: No Advance Directives Information Provided: No Meds Allergies Allergy/AdvReac Type Severity Reaction Status Date / Time dried apricots Allergy Unknown Difficulty Uncoded 02/20/20 06:40 Swallowing WELLBUTRIN AdvReac Unknown Seizure Uncoded 02/20/20 06:40 Home Medications Medication Instructions Recorded Confirmed Type aripiprazole 10 mg PO DAILY 02/08/20 03/09/20 History desipramine 50 mg PO BEDTIME 02/08/20 03/09/20 History escitalopram oxalate 20 mg PO DAILY 02/08/20 03/09/20 History folic acid 1 mg PO DAILY 02/08/20 03/09/20 History omeprazole 20 mg PO DAILY 02/08/20 03/09/20 History thiamine HCl (vitamin B1) [Vitamin 100 mg PO DAILY 02/08/20 03/09/20 History B-1] Exam Exam Date and Time: March 12, 2020 0659 Height,Weight and Vital Signs: Height 5 ft 10 in Weight 84.368 kg Last Vital Signs Temp 96.9 F 03/12/20 06:15 Pulse 103 H 03/12/20 06:15 Resp 18 03/12/20 06:15 BP 157/98 H 03/12/20 06:15 Pulse Ox 97 03/12/20 06:15 Airway Mallampati Class: II TM Dist: >3cm Neck ROM: Full Assessment and Plan Assessment Anesthesia Assessment: Anesthesia Plan Discussed and Chart Reviewed Final Anesthetic Review NPO: Yes ASA Class: II Final Preanesthetic Review: No Changes in Pt Med Stat, Meds/Allgs Chart Reviewed, Consent Obtained/Reviewed and Anes Risks/Benef Reviewed Patient Risk: Low Procedure Risk: Low Assessment/Block/Sedation in SS: Assess/Block/Sedation-SS Anesthetic Plan Anesthetic Plan: GA
--- NOTE | 2020-03-12 07:41 | HO.ANESPROP2 ---
[facility] Past Medical History Medical History Anxiety Bipolar affective disorder Depression GERD (gastroesophageal reflux disease) Peptic ulcer Seizures Surgical History Surgical History H/O vasectomy Social History Social History Household Members: Spouse and Children Housing: Apartment Alcohol intake: never Smoking Status: Current every day smoker Tobacco Type: Cigarette and Pipe Second Hand Smoke Exposure: No Use of substances other than those prescribed or required for medical reasons: Yes Substance Use Type: Former Substance User, Heroin, Marijuana, Opiates, Other, Painkillers and Prescription Drugs Substance Use Frequency: Daily Advance Directives: Yes Advance Directives Information Provided: Yes Advance Directives on File: No Recently lost weight without trying: No Meds Allergies Allergy/AdvReac Type Severity Reaction Status Date / Time dried apricots Allergy Unknown Difficulty Uncoded 02/20/20 06:40 Swallowing WELLBUTRIN AdvReac Unknown Seizure Uncoded 02/20/20 06:40 Home Medications Medication Instructions Recorded Confirmed Type aripiprazole 10 mg PO DAILY 02/08/20 03/09/20 History desipramine 50 mg PO BEDTIME 02/08/20 03/09/20 History escitalopram oxalate 20 mg PO DAILY 02/08/20 03/09/20 History folic acid 1 mg PO DAILY 02/08/20 03/09/20 History omeprazole 20 mg PO DAILY 02/08/20 03/09/20 History thiamine HCl (vitamin B1) [Vitamin 100 mg PO DAILY 02/08/20 03/09/20 History B-1] Exam Exam Date and Time: March 12, 2020 0741 Height,Weight and Vital Signs: Height 5 ft 10 in Weight 84.368 kg Last Vital Signs Temp 97.6 F 03/12/20 07:15 Pulse 112 H 03/12/20 07:30 Resp 16 03/12/20 07:30 BP 147/89 H 03/12/20 07:30 Pulse Ox 95 03/12/20 07:30 Airway Mallampati Class: II TM Dist: >3cm Neck ROM: Full Assessment and Plan Assessment Anesthesia Assessment: Anesthesia Plan Discussed and Chart Reviewed Final Anesthetic Review NPO: Yes ASA Class: II Final Preanesthetic Review: No Changes in Pt Med Stat, Meds/Allgs Chart Reviewed, Consent Obtained/Reviewed and Anes Risks/Benef Reviewed Patient Risk: Low Procedure Risk: Low Assessment/Block/Sedation in SS: Assess/Block/Sedation-SS Anesthetic Plan Anesthetic Plan: GA Disposition: Standard PACU
--- NOTE | 2020-03-12 12:27 | HO.POSTANES ---
Post Anesthesia Evaluation Post Anesthesia Evaluation Vital Signs: Vital Signs Temp Pulse Resp BP Pulse Ox 03/12/20 08:00 96.9 F 101 H 16 142/90 H 95 03/12/20 07:45 104 H 16 150/94 H 96 03/12/20 07:30 112 H 16 147/89 H 95 03/12/20 07:25 105 H 16 150/92 H 96 03/12/20 07:20 102 H 16 158/97 H 98 03/12/20 07:15 97.6 F 109 H 16 190/100 H 97 03/12/20 06:15 96.9 F 103 H 18 157/98 H 97 Anesthesia: General Mental Status: Awake Pain Control: Satisfactory Nausea/Vomiting: None Hydration: Adequate Anesthesia-Related Issues: No Anes. Related Issues
== END 2020-03-12 08:27 ==
LOC: HO.SSS 07:08
PROVIDERS: Visit Provider Psychiatry & Neurology Psychiatry
PROC: (CPT 90870; principal; 2020-03-12 07:00)
DX: F33.2 Major depressive disorder, recurrent severe without psychotic features (principal)
CPT/HCPCS: 90870

== ENCOUNTER 2020-03-16 06:01 | Day surgery (SDC) | payer OTHER, SELFPAY ==
[2020-03-16 06:18] VITALS: BP 143/103; PULSE 106; RESP 20; TEMP 36.7; O2SAT 99; BMI 25.8
--- NOTE | 2020-03-16 06:46 | HO.ANESPROP2 ---
[facility] Past Medical History Medical History Anxiety Bipolar affective disorder Depression GERD (gastroesophageal reflux disease) Peptic ulcer Seizures Surgical History Surgical History H/O vasectomy Social History Social History Household Members: Spouse and Children Housing: Apartment Alcohol intake: never Smoking Status: Current every day smoker Tobacco Type: Cigarette and Pipe Second Hand Smoke Exposure: No Substance Use Type: Former Substance User, Heroin, Marijuana, Opiates, Other, Painkillers and Prescription Drugs Advance Directives: No Advance Directives Information Provided: Yes Meds Allergies Allergy/AdvReac Type Severity Reaction Status Date / Time dried apricots Allergy Unknown Difficulty Uncoded 02/20/20 06:40 Swallowing WELLBUTRIN AdvReac Unknown Seizure Uncoded 02/20/20 06:40 Home Medications Medication Instructions Recorded Confirmed Type aripiprazole 10 mg PO DAILY 02/08/20 03/09/20 History desipramine 50 mg PO BEDTIME 02/08/20 03/09/20 History escitalopram oxalate 20 mg PO DAILY 02/08/20 03/09/20 History folic acid 1 mg PO DAILY 02/08/20 03/09/20 History omeprazole 20 mg PO DAILY 02/08/20 03/09/20 History thiamine HCl (vitamin B1) [Vitamin 100 mg PO DAILY 02/08/20 03/09/20 History B-1] Exam Exam Date and Time: March 16, 2020 0646 Height,Weight and Vital Signs: Height 5 ft 10 in Weight 81.647 kg Last Vital Signs Temp 98.1 F 03/16/20 06:18 Pulse 106 H 03/16/20 06:18 Resp 20 03/16/20 06:18 BP 143/103 H 03/16/20 06:18 Pulse Ox 99 03/16/20 06:18 Airway Mallampati Class: I TM Dist: >3cm Neck ROM: Full Heart: RRR Lungs: CTA BL Assessment and Plan Assessment Anesthesia Assessment: Anesthesia Plan Discussed and Chart Reviewed Final Anesthetic Review NPO: Yes (Sip water with meds) ASA Class: II Final Preanesthetic Review: Meds/Allgs Chart Reviewed and Consent Obtained/Reviewed Patient Risk: Intermediate Procedure Risk: Intermediate Anesthetic Plan Anesthetic Plan: GA Disposition: Standard PACU
--- NOTE | 2020-03-16 07:04 | HO.ECTPROC ---
ECT Procedure Note Diagnosis/Treatment Diagnosis: Major Depressive Disorder Previous ECT Date: 03/12/20 Treatment: Maintenance (#3/#9) Interval Clinical Notes: Stable mood. ECT well tolerated. No memory issues ECT Settings Device: THYMATRON DGx Electrode Placement: Right Unilateral Program/Pulse Width: 0.25 Energy Percent: 15 Seizure Duration By EEG (in seconds): 67 By Motor Observation (in seconds): 46 Medications Administration General Anesthetic: Etomidate (14) Muscle Relaxant: Succinylcholine (100) Ancillary Medications Analgesics: Torodol - Pre ECT (15) Anti-emetics: Zofran - Pre ECT (4) Miscillaneous Medications: Propofol (30) Airway Management Airway Management: Bag Mask Ventilation Treatment Recommendations No Changes Recommended: No change Electrode Placement: Right Unilateral Program/Pulse Width: 0.25 Pt Tolerated Procedure w/o Issue: Yes
[2020-03-16 07:24] VITALS: BP 133/86; PULSE 103; RESP 16; TEMP 36.4; O2SAT 99
[2020-03-16 07:29] VITALS: BP 141/100; PULSE 114; RESP 16; O2SAT 99
[2020-03-16 07:34] VITALS: BP 149/103; PULSE 116; RESP 16; O2SAT 97
[2020-03-16 07:39] VITALS: BP 139/96; PULSE 115; RESP 16; O2SAT 96
[2020-03-16 07:54] VITALS: BP 147/100; PULSE 104; RESP 16; TEMP 36.4; O2SAT 96
--- NOTE | 2020-03-16 08:08 | HO.POSTANES ---
Post Anesthesia Evaluation Post Anesthesia Evaluation Vital Signs: Vital Signs Temp Pulse Resp BP Pulse Ox 03/16/20 07:54 97.5 F 104 H 16 147/100 H 96 03/16/20 07:39 115 H 16 139/96 H 96 03/16/20 07:34 116 H 16 149/103 H 97 03/16/20 07:29 114 H 16 141/100 H 99 03/16/20 07:24 97.5 F 103 H 16 133/86 99 03/16/20 06:18 98.1 F 106 H 20 143/103 H 99 Anesthesia: General Mental Status: Awake Pain Control: Satisfactory Nausea/Vomiting: None Hydration: Adequate Anesthesia-Related Issues: No Anes. Related Issues
== END 2020-03-16 08:13 ==
LOC: HO.SSS 06:02
PROVIDERS: Visit Provider Psychiatry & Neurology Psychiatry
PROC: (CPT 90870; principal; 2020-03-16 07:00)
DX: F33.2 Major depressive disorder, recurrent severe without psychotic features (principal)
CPT/HCPCS: 90870

== ENCOUNTER 2020-03-23 07:58 | Day surgery (SDC) | payer MEDICAID, OTHER, SELFPAY ==
[2020-03-23] VITALS (7 sets, daily range): BP systolic 138–158; BP diastolic 86–104; PULSE 97–105; RESP 16–18; TEMP 36.3–36.7; O2SAT 96–99; BMI 25.8
--- NOTE | 2020-03-23 09:34 | HO.ECTPROC ---
ECT Procedure Note Diagnosis/Treatment Diagnosis: Major Depressive Disorder Previous ECT Date: 03/12/20 Current Treatment Number: 4 (07/14) Treatment: Maintenance (#3/#9) Interval Clinical Notes: Stable mood. ECT well tolerated. No memory issues Had brief nausea few days ago otherwise feeling well ECT Settings Device: THYMATRON DGx Electrode Placement: Right Unilateral Program/Pulse Width: 0.25 Energy Percent: 15 Seizure Duration By EEG (in seconds): 69 Medications Administration General Anesthetic: Etomidate (14) Muscle Relaxant: Succinylcholine (100) Ancillary Medications Analgesics: Torodol - Pre ECT (15) Anti-emetics: Zofran - Pre ECT (4) Miscillaneous Medications: Propofol (30) Airway Management Airway Management: Bag Mask Ventilation Treatment Recommendations No Changes Recommended: No change Notes: continue per dr richardson Pt Tolerated Procedure w/o Issue: Yes
--- NOTE | 2020-03-23 09:35 | MHC.SHP ---
Pre-Procedural Eval Section A The patient is an INPATIENT: No Changes since office visit: Yes Cold of Flu in the past 2 weeks, Yes New Medical Problems and Yes Changes in Medication The History & Physical has been completed within 30 days and I have reviewed it.: Yes Section B Chief Complaint: depression Allergies: Allergies Allergy/AdvReac Type Severity Reaction Status Date / Time dried apricots Allergy Unknown Difficulty Uncoded 03/23/20 08:28 Swallowing WELLBUTRIN AdvReac Unknown Seizure Uncoded 03/23/20 08:28 Plan I have reviewed the history and physical and performed a pertinent physical examination on my patient. No changes have occurred unless specified.
--- NOTE | 2020-03-23 11:02 | HO.POSTANES ---
Post Anesthesia Evaluation Post Anesthesia Evaluation Vital Signs: Vital Signs Temp Pulse Resp BP Pulse Ox 03/23/20 10:47 97.9 F 103 H 16 139/86 97 03/23/20 10:35 105 H 16 138/93 H 97 03/23/20 10:20 102 H 16 143/99 H 96 03/23/20 10:15 104 H 16 148/95 H 99 03/23/20 10:10 100 16 148/100 H 99 03/23/20 10:05 98.0 F 97 16 158/104 H 97 03/23/20 08:24 97.3 F 105 H 18 138/99 H 98 Anesthesia: General Mental Status: Awake Pain Control: Satisfactory Nausea/Vomiting: None Hydration: Adequate Anesthesia-Related Issues: No Anes. Related Issues
== END 2020-03-23 11:11 | disposition home or self-care (01) ==
LOC: HO.SSS 07:59
PROVIDERS: PCP Nurse Practitioner Family; Visit Provider Psychiatry & Neurology Psychiatry
PROC: (CPT 90870; principal; 2020-03-23 09:00)
DX: F32.9 Major depressive disorder, single episode, unspecified (principal)
CPT/HCPCS: 90870

== ENCOUNTER 2020-04-02 06:06 | Day surgery (SDC) | payer OTHER, SELFPAY ==
--- NOTE | 2020-03-23 08:37 | HO.ANESPROP2 ---
[facility] Past Medical History Medical History Anxiety Bipolar affective disorder Depression GERD (gastroesophageal reflux disease) Peptic ulcer Seizures Surgical History Surgical History H/O vasectomy Social History Social History Household Members: Spouse and Children Housing: Apartment Alcohol intake: never Smoking Status: Never smoker Tobacco Type: Cigarette and Pipe Second Hand Smoke Exposure: No Use of substances other than those prescribed or required for medical reasons: Yes Substance Use Type: Former Substance User, Heroin, Marijuana, Opiates, Other, Painkillers and Prescription Drugs Advance Directives: No Advance Directives Information Provided: Yes Meds Allergies Allergy/AdvReac Type Severity Reaction Status Date / Time dried apricots Allergy Unknown Difficulty Uncoded 03/23/20 08:28 Swallowing WELLBUTRIN AdvReac Unknown Seizure Uncoded 03/23/20 08:28 Home Medications Medication Instructions Recorded Confirmed Type aripiprazole 10 mg PO DAILY 02/08/20 03/23/20 History desipramine 50 mg PO BID 02/08/20 03/23/20 History escitalopram oxalate 20 mg PO DAILY 02/08/20 03/23/20 History folic acid 1 mg PO DAILY 02/08/20 03/23/20 History omeprazole 20 mg PO DAILY 02/08/20 03/23/20 History thiamine HCl (vitamin B1) [Vitamin 100 mg PO DAILY 02/08/20 03/23/20 History B-1] Exam Exam Date and Time: March 23, 2020 0837 Airway Mallampati Class: II TM Dist: >3cm Neck ROM: Full
[2020-04-02] VITALS (7 sets, daily range): BP systolic 135–157; BP diastolic 83–105; PULSE 101–114; RESP 16–20; TEMP 36.2–36.6; O2SAT 94–97; BMI 25.8
--- NOTE | 2020-04-02 06:53 | HO.ANESPROP2 ---
[facility] Past Medical History Medical History Anxiety Bipolar affective disorder Depression GERD (gastroesophageal reflux disease) Peptic ulcer Seizures Surgical History Surgical History H/O vasectomy Social History Social History Household Members: Spouse and Children Housing: Apartment Alcohol intake: never Smoking Status: Never smoker Tobacco Type: Cigarette and Pipe Second Hand Smoke Exposure: No Substance Use Type: Former Substance User, Heroin, Marijuana, Opiates, Other, Painkillers and Prescription Drugs Advance Directives: No Advance Directives Information Provided: No Meds Allergies Allergy/AdvReac Type Severity Reaction Status Date / Time dried apricots Allergy Unknown Difficulty Uncoded 03/23/20 08:28 Swallowing WELLBUTRIN AdvReac Unknown Seizure Uncoded 03/23/20 08:28 Home Medications Medication Instructions Recorded Confirmed Type aripiprazole 10 mg PO DAILY 02/08/20 04/02/20 History desipramine 50 mg PO BID 02/08/20 04/02/20 History escitalopram oxalate 20 mg PO DAILY 02/08/20 04/02/20 History folic acid 1 mg PO DAILY 02/08/20 04/02/20 History omeprazole 20 mg PO DAILY 02/08/20 04/02/20 History thiamine HCl (vitamin B1) [Vitamin 100 mg PO DAILY 02/08/20 04/02/20 History B-1] Exam Exam Date and Time: April 02, 2020 0653 Height,Weight and Vital Signs: Height 5 ft 10 in Weight 81.647 kg Last Vital Signs Temp 97.8 F 04/02/20 06:20 Pulse 101 H 04/02/20 06:20 Resp 18 04/02/20 06:20 BP 142/105 H 04/02/20 06:20 Pulse Ox 97 04/02/20 06:20 Airway Mallampati Class: II Neck ROM: Full Heart: RRR Lungs: CTA
--- NOTE | 2020-04-02 06:54 | MHC.SHP ---
Pre-Procedural Eval Section A The patient is an INPATIENT: No Changes since office visit: No Cold of Flu in the past 2 weeks, No New Medical Problems, No Changes in Medication and No Patient answered all questions The History & Physical has been completed within 30 days and I have reviewed it.: Yes Section B Chief Complaint: depression Allergies: Allergies Allergy/AdvReac Type Severity Reaction Status Date / Time dried apricots Allergy Unknown Difficulty Uncoded 03/23/20 08:28 Swallowing WELLBUTRIN AdvReac Unknown Seizure Uncoded 03/23/20 08:28 Plan I have reviewed the history and physical and performed a pertinent physical examination on my patient. No changes have occurred unless specified.
--- NOTE | 2020-04-02 06:55 | HO.ECTPROC ---
ECT Procedure Note Diagnosis/Treatment Diagnosis: Major Depressive Disorder Previous ECT Date: 03/23/20 Treatment: Maintenance (5) and Series (11) Interval Clinical Notes: Mood low but stable., c/o vomitting unrelated to ECT. Will see PCP ECT Settings Device: THYMATRON DGx Electrode Placement: Right Unilateral Program/Pulse Width: 0.25 Energy Percent: 15 Seizure Duration By EEG (in seconds): 69 By Motor Observation (in seconds): 45 Medications Administration General Anesthetic: Etomidate (14) Muscle Relaxant: Succinylcholine (100) Ancillary Medications Analgesics: Torodol - Pre ECT (not given 2/2 Hx heartburn) Anti-emetics: Zofran - Pre ECT (4) Airway Management Airway Management: Bag Mask Ventilation Treatment Recommendations Electrode Placement: Right Unilateral Program/Pulse Width: 0.25 Energy Percent: 15 Notes: No Toradol given. Use analgesics PRN Pt Tolerated Procedure w/o Issue: Yes
== END 2020-04-02 08:21 ==
PROVIDERS: PCP Nurse Practitioner Family; Visit Provider Psychiatry & Neurology Psychiatry
PROC: (CPT 90870; principal; 2020-04-02 07:30)
DX: F33.9 Major depressive disorder, recurrent, unspecified (principal)
CPT/HCPCS: 90870; J0330; J2405

== ENCOUNTER → 2020-04-10 10:20 | Outpatient (BNVA) | payer OTHER, SELFPAY | PROVIDERS: Visit Provider Internal Medicine | DX: F11.99 Opioid use, unspecified with unspecified opioid-induced disorder (principal); F33.2 Major depressive disorder, recurrent severe without psychotic features | CPT/HCPCS: 80305; 96372; 99212 ==

== ENCOUNTER → 2020-05-09 10:19 | Outpatient (BNVA) | payer MEDICAID, SELFPAY | PROVIDERS: Visit Provider Internal Medicine | DX: F11.99 Opioid use, unspecified with unspecified opioid-induced disorder (principal) | CPT/HCPCS: 80305; 96372; 99212 ==

== ENCOUNTER → 2020-06-06 10:55 | Outpatient (BNVA) | payer MEDICAID, SELFPAY | PROVIDERS: Visit Provider Internal Medicine | DX: F11.99 Opioid use, unspecified with unspecified opioid-induced disorder (principal); Z51.81 Encounter for therapeutic drug level monitoring | CPT/HCPCS: 80305; 96372; 99212; J2315 ==

== ENCOUNTER 2020-07-05 11:01 | Outpatient (REF) | payer MEDICAID, SELFPAY ==
[2020-07-05 14:02] LABS: Alanine Aminotransferase 136 U/L (0-40); Albumin Level 4.9 g/dL (3.5-5.0); Alkaline Phosphatase 101 U/L (39-117); Aspartate Amino Transferase 76 U/L (5-37); Bilirubin Direct 0.2 mg/dL (0.0-0.5); Bilirubin Total 0.5 mg/dL (0.0-1.0); Total Protein 7.8 g/dL (6.5-8.0)
[2020-07-06 07:57] LABS: ~HepC Num1 0.07 S/CO (0.00-0.79); ~Hepatitis C Antibody Nonreactive (Nonreactive)
== END 2020-07-05 11:02 | disposition home or self-care (01) ==
LOC: HO.LAB 11:01
PROVIDERS: Visit Provider Internal Medicine
DX: F11.99 Opioid use, unspecified with unspecified opioid-induced disorder (principal); Z51.81 Encounter for therapeutic drug level monitoring
CPT/HCPCS: 36415; 80076; 80305; 86803; 96372; 99211

== ENCOUNTER → 2020-08-03 15:00 | Outpatient (BNVA) | payer MEDICAID, SELFPAY | PROVIDERS: Visit Provider Internal Medicine | DX: F11.20 Opioid dependence, uncomplicated (principal); Z51.81 Encounter for therapeutic drug level monitoring; Z79.899 Other long term (current) drug therapy | CPT/HCPCS: 80305; 96372; 99211; 99212 ==

== ENCOUNTER → 2020-08-31 15:00 | Outpatient (BNVA) | payer OTHER, SELFPAY | PROVIDERS: Visit Provider Internal Medicine | DX: F11.99 Opioid use, unspecified with unspecified opioid-induced disorder (principal) | CPT/HCPCS: 80305; 96372; 99211; J2315 ==

== ENCOUNTER → 2020-09-28 08:55 | Outpatient (BNVA) | payer OTHER, SELFPAY | PROVIDERS: Visit Provider Internal Medicine | DX: Z51.81 Encounter for therapeutic drug level monitoring (principal); F11.99 Opioid use, unspecified with unspecified opioid-induced disorder ==

== ENCOUNTER → 2020-10-12 11:49 | Outpatient (BNVA) | payer MEDICAID, SELFPAY | PROVIDERS: PCP Nurse Practitioner Family; Visit Provider Internal Medicine | DX: F11.99 Opioid use, unspecified with unspecified opioid-induced disorder (principal) | CPT/HCPCS: 80305; 96372; 99212 ==

== ENCOUNTER → 2020-12-17 11:48 | Outpatient (BNVA) | payer MEDICAID, SELFPAY | PROVIDERS: Visit Provider Internal Medicine | DX: Z51.81 Encounter for therapeutic drug level monitoring (principal); F11.20 Opioid dependence, uncomplicated; Z79.899 Other long term (current) drug therapy | CPT/HCPCS: 80305; 96372; 99212; J2315 ==

== ENCOUNTER → 2021-01-15 11:41 | Outpatient (BNVA) | payer MEDICAID, SELFPAY | PROVIDERS: Visit Provider Internal Medicine | DX: Z51.81 Encounter for therapeutic drug level monitoring (principal); F11.90 Opioid use, unspecified, uncomplicated | CPT/HCPCS: 80305; 96372; 99212; J2315 ==

== ENCOUNTER → 2021-02-12 11:25 | Outpatient (BNVA) | payer MEDICAID, SELFPAY | PROVIDERS: Visit Provider Internal Medicine | DX: F11.90 Opioid use, unspecified, uncomplicated (principal) | CPT/HCPCS: 80305; 96372; 99212; J2315 ==

== ENCOUNTER → 2021-03-12 11:45 | Outpatient (BNVA) | payer MEDICAID, SELFPAY | PROVIDERS: Visit Provider Internal Medicine | DX: F11.20 Opioid dependence, uncomplicated (principal) | CPT/HCPCS: 80305; 96372; 99212 ==

== ENCOUNTER → 2021-04-09 11:46 | Outpatient (BNVA) | payer MEDICAID, SELFPAY | PROVIDERS: Visit Provider Internal Medicine | DX: Z51.81 Encounter for therapeutic drug level monitoring (principal); F11.20 Opioid dependence, uncomplicated | CPT/HCPCS: 80305; 96372; 99212; J2315 ==

== ENCOUNTER → 2021-05-08 10:34 | Outpatient (BNVA) | payer MEDICAID, SELFPAY | PROVIDERS: Visit Provider Internal Medicine | DX: Z51.81 Encounter for therapeutic drug level monitoring (principal); F11.20 Opioid dependence, uncomplicated | CPT/HCPCS: 80305; 96372; 99212; J2315 ==

== ENCOUNTER → 2021-06-05 10:07 | Outpatient (BNVA) | payer MEDICAID, SELFPAY | PROVIDERS: Visit Provider Internal Medicine | DX: Z51.81 Encounter for therapeutic drug level monitoring (principal); F11.20 Opioid dependence, uncomplicated | CPT/HCPCS: 80305; 96372; 99212; J2315 ==

== ENCOUNTER → 2021-07-03 10:37 | Outpatient (BNVA) | payer MEDICAID, SELFPAY | PROVIDERS: Visit Provider Internal Medicine | DX: F11.20 Opioid dependence, uncomplicated (principal); Z51.81 Encounter for therapeutic drug level monitoring; Z79.899 Other long term (current) drug therapy | CPT/HCPCS: 80305; 96372; 99212; J2315 ==

== ENCOUNTER → 2021-07-31 11:23 | Outpatient (BNVA) | payer MEDICAID, SELFPAY | PROVIDERS: Visit Provider Internal Medicine | DX: F11.20 Opioid dependence, uncomplicated (principal) | CPT/HCPCS: 80305; 96372; 99212; J2315 ==

== ENCOUNTER 2022-04-11 09:13 | Outpatient (REF) | payer MEDICAID, SELFPAY ==
[2022-04-11 11:48] LABS: Alanine Aminotransferase 74 U/L (0-40); Alkaline Phosphatase 85 U/L (39-117); Aspartate Amino Transferase 45 U/L (5-37); Bilirubin Direct 0.2 mg/dL (0.0-0.5); Bilirubin Total 0.6 mg/dL (0.0-1.0); Total Protein 7.7 g/dL (6.5-8.0)
== END 2022-04-11 09:14 | disposition home or self-care (01) ==
LOC: HO.LAB 09:13
PROVIDERS: PCP Nurse Practitioner Family; Visit Provider Nurse Practitioner Psychiatric/Mental Health
DX: F11.21 Opioid dependence, in remission (principal); Z51.81 Encounter for therapeutic drug level monitoring; Z79.899 Other long term (current) drug therapy
CPT/HCPCS: 36415; 80076; 80305; 96372; 99212

== ENCOUNTER → 2022-05-09 09:18 | Outpatient (BNVA) | payer MEDICAID, SELFPAY | PROVIDERS: PCP Nurse Practitioner Family; Visit Provider Nurse Practitioner Psychiatric/Mental Health | DX: F11.20 Opioid dependence, uncomplicated (principal) | CPT/HCPCS: 80305; 96372; 99212 ==

== ENCOUNTER → 2022-06-06 09:22 | Outpatient (BNVA) | payer MEDICAID, SELFPAY | PROVIDERS: Visit Provider Nurse Practitioner Psychiatric/Mental Health | DX: Z51.81 Encounter for therapeutic drug level monitoring (principal); F11.21 Opioid dependence, in remission | CPT/HCPCS: 80305; 96372; 99212 ==

== ENCOUNTER → 2022-07-08 09:35 | Outpatient (BNVA) | payer MEDICAID, SELFPAY | PROVIDERS: PCP Nurse Practitioner Family; Visit Provider Nurse Practitioner Psychiatric/Mental Health | DX: Z51.81 Encounter for therapeutic drug level monitoring (principal); F11.21 Opioid dependence, in remission | CPT/HCPCS: 80305; 96372; 99212 ==

== ENCOUNTER → 2022-08-07 09:38 | Outpatient (BNVA) | payer MEDICAID, SELFPAY | PROVIDERS: PCP Nurse Practitioner Family; Visit Provider Nurse Practitioner Psychiatric/Mental Health | DX: Z51.81 Encounter for therapeutic drug level monitoring (principal); F10.20 Alcohol dependence, uncomplicated; F11.21 Opioid dependence, in remission; Z79.899 Other long term (current) drug therapy | CPT/HCPCS: 96372; 99212 ==

== ENCOUNTER 2022-09-04 09:27 | Outpatient (REF) | payer MEDICAID, SELFPAY ==
[2022-09-04 11:54] LABS: Alanine Aminotransferase 86 U/L (0-40); Albumin Level 4.7 g/dL (3.5-5.0); Alkaline Phosphatase 92 U/L (39-117); Aspartate Amino Transferase 51 U/L (5-37); Bilirubin Direct 0.2 mg/dL (0.0-0.5); Bilirubin Total 0.5 mg/dL (0.0-1.0); Total Protein 7.4 g/dL (6.5-8.0)
== END 2022-09-04 09:28 | disposition home or self-care (01) ==
LOC: HO.LAB 09:27
PROVIDERS: PCP Nurse Practitioner Family; Visit Provider Nurse Practitioner Psychiatric/Mental Health
DX: F11.21 Opioid dependence, in remission (principal); Z51.81 Encounter for therapeutic drug level monitoring; Z79.899 Other long term (current) drug therapy; Z87.891 Personal history of nicotine dependence
CPT/HCPCS: 36415; 80076; 80305; 96372; 99212

== ENCOUNTER → 2022-10-01 13:23 | Outpatient (BNVA) | payer MEDICAID, SELFPAY | PROVIDERS: PCP Nurse Practitioner Family; Visit Provider Nurse Practitioner Psychiatric/Mental Health | DX: Z51.81 Encounter for therapeutic drug level monitoring (principal); F11.21 Opioid dependence, in remission | CPT/HCPCS: 80305; 96372; 99212 ==

== ENCOUNTER 2022-10-31 10:07 | Outpatient (AMB) | payer MEDICAID, SELFPAY ==
--- NOTE | 2022-10-31 10:10 | A.OFFVIS_ITS ---
Intake Vital Signs 10/31/22 10:14 BP 150/92 H Blood Pressure Location Lt radial Position Sitting Pulse 104 H Pulse Source Pulse Oximeter Pulse Oximetry (%) 97 Oxygen Delivery Method Room Air Intake Visit Reasons: Minerva Inj Intake Note: the patient presents for a minerva inj Adjustment Examiner Required: No Allergies dried apricots Allergy (Unknown, Uncoded 10/31/22 10:15) Difficulty Swallowing WELLBUTRIN Adverse Reaction (Unknown, Uncoded 10/31/22 10:15) Seizure HPI Minerva Inj HPI Details Patient presents for follow up and vivitrol injection Doing well with injection No concerns related to recovery [facility] Medical History Anxiety Bipolar affective disorder Depression GERD (gastroesophageal reflux disease) Opioid use disorder Opioid use disorder Peptic ulcer Seizures Surgical History H/O vasectomy Social History Household Members: Spouse and Children Housing: Apartment Alcohol intake: never Patient Tobacco Use Status: Current someday Tobacco user Tobacco use type: Cigar Second Hand Smoke Exposure: No Substance Use Type: Former Substance User, Heroin, Marijuana, Opiates, Other, Painkillers and Prescription Drugs Review of Systems Const Reports as per HPI and Reports no additional complaints Physical Exam Vital Signs: Last Vital Signs Pulse 104 H 10/31/22 10:14 BP 150/92 H 10/31/22 10:14 Pulse Ox 97 10/31/22 10:14 Oxygen Delivery Method Room Air 10/31/22 10:14 Const General: cooperative and healthy appearing Psych Appearance: grossly normal Speech and movement: Clear speech present Affect: normal affect Attitude: cooperative Insight: Good insight present (Psych) Judgement: Good judgement present (Psych) Office Meds Vivitrol ER Performing Provider: Tamara Cast CNP Administered by: Melania Ellington on 10/31/22 10:20 Dose Route Admin Location Lot Number Expiration Date NDC Rvda Master Certified Rv Technician 380 mg IM [id number] 02/03/25 46333-954-30 [employer] Comments: Assessed area prior to injection. Educated pt on signs/symptoms of infection, encouraged to call the [facility] with questions or concerns. Pt tolerated injection well. Assessment & Plan Assessment & Plan (1) Opioid use disorder, moderate, in sustained remission: Code(s): F11.21 - Opioid dependence, in remission Plan: * tolerated injection * follow up 4 weeks Orders: Orders AMB Naltrexone Injection Patient Supplied 10/31/22 F11.21 - Opioid dependence, in remission Coding Level of Care Code Est Pt Level 3 (80315) Diagnoses Opioid use disorder, moderate, in sustained remission F11.21
[2022-10-31 10:14] VITALS: BP 150/92; PULSE 104; O2SAT 97
== END 2022-10-31 11:12 | disposition home or self-care (01) ==
LOC: HO.HCC 10:07
PROVIDERS: PCP Nurse Practitioner Family; Visit Provider Nurse Practitioner Psychiatric/Mental Health
DX: F11.21 Opioid dependence, in remission (principal)
CPT/HCPCS: 99213; J2315

== ENCOUNTER → 2022-10-31 10:07 | Outpatient (BNVA) | payer MEDICAID, SELFPAY | PROVIDERS: PCP Nurse Practitioner Family; Visit Provider Nurse Practitioner Psychiatric/Mental Health | DX: Z51.81 Encounter for therapeutic drug level monitoring (principal); F11.21 Opioid dependence, in remission | CPT/HCPCS: 96372; 99213 ==

== ENCOUNTER 2022-11-24 10:44 | Outpatient (AMB) | payer MEDICAID, SELFPAY ==
--- NOTE | 2022-11-24 10:45 | A.OFFVIS_ITS ---
Intake Vital Signs 11/24/22 10:58 BP 136/84 Blood Pressure Location Lt radial Position Sitting Pulse 96 Pulse Source Pulse Oximeter Pulse Oximetry (%) 97 Oxygen Delivery Method Room Air Comment had caffeine Intake Visit Reasons: Minerva Inj Intake Note: the patient presents for a minerva inj Telephone Plant Power Operator Required: No Allergies dried apricots Allergy (Unknown, Uncoded 11/24/22 10:46) Difficulty Swallowing WELLBUTRIN Adverse Reaction (Unknown, Uncoded 11/24/22 10:46) Seizure Do you need a note to return to daycare/school/sports/work: No PFSH Medical History Anxiety Bipolar affective disorder Depression GERD (gastroesophageal reflux disease) Opioid use disorder Opioid use disorder Peptic ulcer Seizures Surgical History H/O vasectomy Social History Household Members: Spouse and Children Housing: Apartment Alcohol intake: never Patient Tobacco Use Status: Current someday Tobacco user Tobacco use type: Cigar Second Hand Smoke Exposure: No Substance Use Type: Former Substance User, Heroin, Marijuana, Opiates, Other, Painkillers and Prescription Drugs Physical Exam Vital Signs: Last Vital Signs Pulse 96 11/24/22 10:58 BP 136/84 11/24/22 10:58 Pulse Ox 97 11/24/22 10:58 Oxygen Delivery Method Room Air 11/24/22 10:58 Office Meds Vivitrol ER Performing Provider: Tamara Cast CNP Administered by: Lashon Ghosh RN on 11/24/22 11:25 Dose Route Admin Location Lot Number Expiration Date NDC Courier 380 mg IM [id number] 03/05/25 86263-697-49 [employer] Comments: Assessed prior inj site, no s/sx of infection, educated pt on what to look for, instructed to call [facility] with any questions. Pt amlcom injection well. Results AMB 14 Panel Urine Drug Screen Urine Marijuana (THC) Positive Last Edit by Janey Henderson CMA on 11/24/22 11:03 Urine Cocaine Negative Last Edit by Janey Henderson CMA on 11/24/22 11:03 Urine Morphine Negative Last Edit by Janey Henderson CMA on 11/24/22 11:03 Urine Methamphetamine Negative Last Edit by Janey Henderson CMA on 11/24/22 11:03 Urine Amphetamine Negative Last Edit by Janey Henderson CMA on 11/24/22 11:0 3 Urine Benzodiazepine Negative Last Edit by Janey Henderson CMA on 11/24/22 11:03 Urine Barbiturates Negative Last Edit by Janey Henderson CMA on 11/24/22 11: 03 Urine Methadone Negative Last Edit by Janey Henderson CMA on 11/24/22 11:03 Urine Buprenorphine Negative Last Edit by Janey Henderson CMA on 11/24/22 11 :03 Urine Tricyclic Antidepressant Positive Last Edit by Janey Henderson CMA on 11/24/22 11:03 Urine MDMA Negative Last Edit by Janey Henderson CMA on 11/24/22 11:03 Urine Oxycodone Negative Last Edit by Janey Henderson CMA on 11/24/22 11:03 Urine Phencyclidine Negative Last Edit by Janey Henderson CMA on 11/24/22 11 :03 Urine Propoxyphene Negative Last Edit by Janey Henderson CMA on 11/24/22 11: 03 Results Reviewed Results Reviewed: Laboratory Last Values POC Urine Buprenorphine Negative 11/24/22 10:52 POC Urine Morphine Negative 11/24/22 10:52 POC Urine Oxycodone Negative 11/24/22 10:52 POC Urine Methadone Negative 11/24/22 10:52 POC Urine Propoxyphene Negative 11/24/22 10:52 POC Urine Barbiturates Negative 11/24/22 10:52 POC U Tricyclic Antidpr Positive 11/24/22 10:52 POC Urine PCP Negative 11/24/22 10:52 POC Ur Amphetamines Negative 11/24/22 10:52 POC Ur Methamphetamine Negative 11/24/22 10:52 POC Urine MDMA Negative 11/24/22 10:52 POC Ur Benzodiazepine Negative 11/24/22 10:52 POC Urine Cocaine Negative 11/24/22 10:52 POC Ur Marijuana (THC) Positive 11/24/22 10:52 Assessment & Plan Assessment & Plan Orders: Orders AMB Naltrexone Injection Patient Supplied Today F11.21 - Opioid dependence, in remission AMB 14 Panel Urine Drug Screen Today Z51.81 - Encounter for therapeutic drug level monitoring Coding Diagnoses
[2022-11-24 10:58] VITALS: BP 136/84; PULSE 96; O2SAT 97
--- NOTE | 2022-11-24 11:32 | AM.OFFVISNUR ---
Intake Vital Signs 11/24/22 10:58 BP 136/84 Blood Pressure Location Lt radial Position Sitting Pulse 96 Pulse Source Pulse Oximeter Pulse Oximetry (%) 97 Oxygen Delivery Method Room Air Comment had caffeine Intake Visit Reasons: Minerva Inj Allergies dried apricots Allergy (Unknown, Uncoded 11/24/22 10:46) Difficulty Swallowing WELLBUTRIN Adverse Reaction (Unknown, Uncoded 11/24/22 10:46) Seizure Nursing Note Pt presents for 4 week AUD follow up. Pt prescribed vivitrol injection. Pt reports doing well with injection, no issues from last injection. Denies concerns r/t recovery or injection. States he has plans today to hike the [employer] with his children today. Appt in 4 weeks. Provider aware. Office Meds Vivitrol ER Performing Provider: Tamara Cast CNP Administered by: Lashon Ghosh RN on 11/24/22 11:25 Dose Route Admin Location Lot Number Expiration Date NDC Melt House Centrifugal Operator 380 mg IM [id number] 03/05/25 [id number] [employer] Comments: Assessed prior inj site, no s/sx of infection, educated pt on what to look for, instructed to call [facility] with any questions. Pt malcom injection well. Results AMB 14 Panel Urine Drug Screen Urine Marijuana (THC) Positive Last Edit by Janey Henderson CMA on 11/24/22 11:03 Urine Cocaine Negative Last Edit by Janey Henderson CMA on 11/24/22 11:03 Urine Morphine Negative Last Edit by Janey Henderson CMA on 11/24/22 11:03 Urine Methamphetamine Negative Last Edit by Janey Henderson CMA on 11/24/22 11:03 Urine Amphetamine Negative Last Edit by Janey Henderson CMA on 11/24/22 11:03 Urine Benzodiazepine Negative Last Edit by Janey Henderson CMA on 11/24/22 11:03 Urine Barbiturates Negative Last Edit by Janey Henderson CMA on 11/24/22 11:03 Urine Methadone Negative Last Edit by Janey Henderson CMA on 11/24/22 11:03 Urine Buprenorphine Negative Last Edit by Janey Henderson CMA on 11/24/22 11:03 Urine Tricyclic Antidepressant Positive Last Edit by Janey Henderson CMA on 11/24/22 11:03 Urine MDMA Negative Last Edit by Janey Henderson CMA on 11/24/22 11:03 Urine Oxycodone Negative Last Edit by Janey Henderson CMA on 11/24/22 11:03 Urine Phencyclidine Negative Last Edit by Janey Henderson CMA on 11/24/22 11:03 Urine Propoxyphene Negative Last Edit by Janey Henderson CMA on 11/24/22 11:03 Coding Diagnoses Assessment & Plan Assessment & Plan Orders: Orders AMB Naltrexone Injection Patient Supplied Today F11.21 - Opioid dependence, in remission AMB 14 Panel Urine Drug Screen Today Z51.81 - Encounter for therapeutic drug level monitoring
== END 2022-11-24 11:25 | disposition home or self-care (01) ==
LOC: HO.HCC 10:44
PROVIDERS: PCP Nurse Practitioner Family; Visit Provider Nurse Practitioner Psychiatric/Mental Health
DX: Z51.81 Encounter for therapeutic drug level monitoring (principal); F11.21 Opioid dependence, in remission
CPT/HCPCS: J2315

== ENCOUNTER → 2022-11-24 10:44 | Outpatient (BNVA) | payer MEDICAID, SELFPAY | PROVIDERS: PCP Nurse Practitioner Family; Visit Provider Nurse Practitioner Psychiatric/Mental Health | DX: F11.21 Opioid dependence, in remission (principal); Z51.81 Encounter for therapeutic drug level monitoring; Z79.899 Other long term (current) drug therapy | CPT/HCPCS: 80305; 96372 ==

== ENCOUNTER 2022-12-22 10:26 | Outpatient (AMB) | payer MEDICAID, SELFPAY ==
--- NOTE | 2022-12-22 10:28 | MHC.OFFVIS ---
Intake Vital Signs 12/22/22 10:35 BP 132/82 Blood Pressure Location Lt radial Position Sitting Pulse 96 Pulse Source Pulse Oximeter Pulse Oximetry (%) 98 Oxygen Delivery Method Room Air Intake Visit Reasons: Minerva Inj Intake Note: THE PATIENT PRESENTS FOR A MINERVA INJ Personnel Technician Required: No Allergies dried apricots Allergy (Unknown, Uncoded 12/22/22 10:36) Difficulty Swallowing WELLBUTRIN Adverse Reaction (Unknown, Uncoded 12/22/22 10:36) Seizure Do you need a note to return to daycare/school/sports/work: No PFSH Medical History Anxiety Bipolar affective disorder Depression GERD (gastroesophageal reflux disease) Opioid use disorder Opioid use disorder Peptic ulcer Seizures Surgical History H/O vasectomy Social History Household Members: Spouse and Children Housing: Apartment Alcohol intake: never Patient Tobacco Use Status: Current someday Tobacco user Tobacco use type: Cigar Second Hand Smoke Exposure: No Substance Use Type: Former Substance User, Heroin, Marijuana, Opiates, Other, Painkillers and Prescription Drugs Assessment & Plan Assessment & Plan Orders: Orders AMB 14 Panel Urine Drug Screen Today Z51.81 - Encounter for therapeutic drug level monitoring Coding
[2022-12-22 10:35] VITALS: BP 132/82; PULSE 96; O2SAT 98
--- NOTE | 2022-12-22 10:38 | AM.OFFVISNUR ---
Intake Vital Signs 12/22/22 10:35 BP 132/82 Blood Pressure Location Lt radial Position Sitting Pulse 96 Pulse Source Pulse Oximeter Pulse Oximetry (%) 98 Oxygen Delivery Method Room Air Intake Visit Reasons: Minerva Inj Allergies dried apricots Allergy (Unknown, Uncoded 12/22/22 10:36) Difficulty Swallowing WELLBUTRIN Adverse Reaction (Unknown, Uncoded 12/22/22 10:36) Seizure Results AMB 14 Panel Urine Drug Screen Urine Marijuana (THC) Positive Last Edit by Janey Henderson CMA on 12/22/22 10:37 Urine Cocaine Negative Last Edit by Janey Henderson CMA on 12/22/22 10:37 Urine Morphine Negative Last Edit by Janey Henderson CMA on 12/22/22 10:37 Urine Methamphetamine Negative Last Edit by Janey Henderson CMA on 12/22/22 10:37 Urine Amphetamine Negative Last Edit by Janey Henderson CMA on 12/22/22 10:37 Urine Benzodiazepine Negative Last Edit by Janey Henderson CMA on 12/22/22 10:37 Urine Barbiturates Negative Last Edit by Janey Henderson CMA on 12/22/22 10:37 Urine Methadone Negative Last Edit by Janey Henderson CMA on 12/22/22 10:37 Urine Buprenorphine Negative Last Edit by Janey Henderson CMA on 12/22/22 10:37 Urine Tricyclic Antidepressant Positive Last Edit by Janey Henderson CMA on 12/22/22 10:37 Urine MDMA Negative Last Edit by Janey Henderson CMA on 12/22/22 10:37 Urine Oxycodone Negative Last Edit by Janey Henderson CMA on 12/22/22 10:37 Urine Phencyclidine Negative Last Edit by Janey Henderson CMA on 12/22/22 10:37 Urine Propoxyphene Negative Last Edit by Janey Henderson CMA on 12/22/22 10:37 Coding Assessment & Plan Assessment & Plan Orders: Orders AMB 14 Panel Urine Drug Screen Today Z51.81 - Encounter for therapeutic drug level monitoring AMB Naltrexone Injection Patient Supplied Today F11.99 - Opioid use, unspecified with unspecified opioid-induced disorder Medications: New Vivitrol ER (naltrexone microspheres) 380 mg IM ONCE 1 ea 0RF NS F11.99 - Opioid use, unspecified with unspecified opioid-induced disorder
== END 2022-12-22 11:07 | disposition home or self-care (01) ==
PROVIDERS: PCP Nurse Practitioner Family; Visit Provider Nurse Practitioner Family
DX: Z51.81 Encounter for therapeutic drug level monitoring (principal); F11.99 Opioid use, unspecified with unspecified opioid-induced disorder
CPT/HCPCS: J2315

== ENCOUNTER → 2022-12-22 10:26 | Outpatient (BNVA) | payer MEDICAID, SELFPAY | PROVIDERS: PCP Nurse Practitioner Family | DX: Z51.81 Encounter for therapeutic drug level monitoring (principal); F11.21 Opioid dependence, in remission; Z79.899 Other long term (current) drug therapy | CPT/HCPCS: 80305; 96372 ==

== ENCOUNTER 2023-01-16 13:15 | Outpatient (AMB) | payer MEDICAID, SELFPAY ==
--- NOTE | 2023-01-16 13:31 | AM.OFFVISNUR ---
Intake Vital Signs 01/16/23 13:41 BP 110/70 Blood Pressure Location Lt brachial Position Sitting Pulse 96 Pulse Oximetry (%) 97 Intake Visit Reasons: Minerva Inj Allergies dried apricots Allergy (Unknown, Uncoded 12/22/22 10:36) Difficulty Swallowing WELLBUTRIN Adverse Reaction (Unknown, Uncoded 12/22/22 10:36) Seizure Nursing Note Patient here for 4 week AUD follow up. Pt prescribed MINERVA INJ. Pt reports no issues or concerns with INJ. Pt denied cravings/instrusive thoughts. Pt states had surgery, is on prescription pain medicine-reports prescription opiates is what started patients addiction. Pt reports is unaware where opiate meds are in the home, pts keeps meds out of site. Discussed with patient if more longer term pain mgmt with opaites, tools such as a lock box. Offered pt packet to dissolve controls, pt declined. Pt report Mom is an RN and will ask Mom. Pt guarded at times during visit. Follow up appointment in 4 weeks. Coding
[2023-01-16 13:41] VITALS: BP 110/70; PULSE 96; O2SAT 97
== END 2023-01-16 14:12 | disposition home or self-care (01) ==
PROVIDERS: PCP Nurse Practitioner Family; Visit Provider Nurse Practitioner Family
DX: F11.21 Opioid dependence, in remission (principal)
CPT/HCPCS: J2315

== ENCOUNTER → 2023-01-16 13:15 | Outpatient (BNVA) | payer MEDICAID, SELFPAY | PROVIDERS: PCP Nurse Practitioner Family; Visit Provider Nurse Practitioner Family | DX: Z51.81 Encounter for therapeutic drug level monitoring (principal); F11.21 Opioid dependence, in remission; Z79.899 Other long term (current) drug therapy | CPT/HCPCS: 96372 ==